=== PATIENT | male | born 1960 | race Caucasian/White ===

== ENCOUNTER 2022-12-24 14:58 | Outpatient (CLI) | payer OTHER, SELFPAY ==
--- NOTE | 2022-12-24 15:30 | MR_ITS ---
[address] [address] Phone:?[phone] Fax:?[phone] Referring Physician Information: Frederic Borden M.D. [id number] [facility] [address] Phone:?[phone] Fax:?[phone] Patient:Jerzy Torres D.O.B:?1960 Sex:?Male Phone:?[phone] [facility] MRN:?[id number] Exam Date:?12/24/2022 EXAM: MRI of the LEFT KNEE, without contrast CLINICAL INFORMATION: Male, 62 years old, with left knee pain. INDICATION: Evaluate knee pain. PRIOR SURGERY: None reported. PLAIN FILMS: None available. COMPARISONS: Left knee MRI dated 10/14/2012. TECHNICAL INFORMATION: Using a 1.5T MR scanner and a localizing surface coil: sagittals: PD, PDFS coronals: PD, T2FS axials: PD, PDFS SEDATION: None CONTRAST: None FINDINGS: Knee joint: Effusion: Mild left knee effusion. Popliteal cyst: Tiny, unruptured popliteal (Lee's) cyst. Loose bodies: None. Subcutaneous and extra-articular soft tissues: Unremarkable. Ligaments: ACL: Moderate thickening and abnormal intrasubstance signal throughout the ACL, without ACL tear (sagittal PDFS series 6 images 17 & 16). PCL: Intact PCL, without acute or chronic injury. MCL: Intact MCL superficial and deep layers, without injury. LCL: Intact LCL, without injury. Posterolateral corner: Mild-moderate popliteus tendinopathy, without tear. Biceps femoris, iliotibial band, popliteofibular ligament and lateral gastrocnemius are intact. Posteromedial corner: No posteromedial corner soft tissue injury. Semimembranosus, pes anserine tendons and posterior oblique ligament are without injury, tendinopathy or bursitis. Extensor mechanism: Patellar tendon: Chronic enthesopathic changes are noted at the inferior pole of the patella. No patellar tendinopathy or tear. Quadriceps tendon: Intact, without tendinopathy. Retinacula: Medial and lateral retinacula are intact. Fat pads: Mild-moderate edema is present in the superolateral aspect of Hoffa's fat pad (sagittal PDFS series 6 images 23 & 24). Additionally, there are signal intensity foci within Hoffa's fat pad, which is suggestive of prior arthroscopy. Medial compartment: Medial meniscus: Diminutive appearance of the posterior horn and body is suggestive of prior partial meniscectomy. No discrete medial meniscal tear. Medial femoral condyle: No chondromalacia or osteochondral abnormality. Medial tibial plateau: No chondromalacia or osteochondral abnormality. Lateral compartment: Lateral meniscus: Intrasubstance degeneration and ill-defined [id number] tearing is present throughout the posterior root of the lateral meniscus over a length of 1.2 cm (sagittal PDFS series 6 images 17-20). No parameniscal cyst. Lateral femoral condyle & tibial plateau: Broad-based grade II chondromalacia throughout the central, weightbearing aspect of the lateral compartment, with minimal marginal osteophytosis and reactive osseous changes. Patellofemoral joint: Patella: Generalized grade II/III chondromalacia of the patella, with minimal marginal osteophytosis. Trochlea: Broad-based grade II/III chondromalacia throughout the medial facet and central sulcus, with minimal marginal osteophytosis. Proximal tibiofibular joint: Unremarkable, without evidence of ligament sprain injury, joint effusion or adjacent marrow edema. Bones: No stress/occult fractures or other marrow edema/pathology. IMPRESSION: 1. Intrasubstance degeneration and high-grade tearing of the lateral meniscal posterior root measures 1.2 cm. This was not present on the prior study dated 10/14/2012 2. Mild osteoarthritis of the patellofemoral compartment. 3. Minimal osteoarthritis of the lateral compartment. 4. Patellar tendon lateral femoral condyle friction syndrome. 5. Moderate mucinous degeneration of the ACL, without tear, which was also not present on the prior study. 6. Mild knee joint effusion with a tiny, unruptured popliteal (Lee's) cyst. 7. Status post partial medial meniscectomy. No recurrent medial meniscal tear. 8. No PCL, MCL, or LCL sprain/tear. BC Electronically signed on 12/25/2022 10:05:00 AM by Tae Segura M.D.
== END 2022-12-24 14:59 | disposition home or self-care (01) ==
LOC: MRI 15:00
PROVIDERS: PCP Family Medicine; Visit Provider Orthopaedic Surgery Sports Medicine
DX: M25.562 Pain in left knee (principal); S83.282A Other tear of lateral meniscus, current injury, left knee, initial encounter; M17.12 Unilateral primary osteoarthritis, left knee; M25.462 Effusion, left knee
CPT/HCPCS: 73721